=== PATIENT | female | born 1985 | race Caucasian/White ===

== ENCOUNTER 2020-06-19 02:01 | Inpatient (IN) ==
[2020-06-19] MEDS ORDERED: ONDANSETRON 4 MG/2 ML VIAL IV STA (02:35)
[2020-06-19] MEDS ORDERED: HYDROmorphone 2 MG/1 ML VIAL IV STA (02:35)
[2020-06-19] MEDS ORDERED: PANTOPRAZOLE 40 MG VIAL IV STA (02:35)
[2020-06-19] MEDS ORDERED: SODIUM CHLORIDE 0.9% 1,000 ML IV STA (02:35)
[2020-06-19] MEDS ORDERED: LEVOFLOXACIN INJ 500 MG in PREMIX 1 EACH IV STA (02:43)
[2020-06-19] MEDS ORDERED: GLUCAGON 1 MG VIAL IM PRN (02:51)
[2020-06-19] MEDS ORDERED: ONDANSETRON 4 MG/2 ML VIAL IV PRN (02:51)
[2020-06-19] MEDS ORDERED: DEXTROSE 50% 25 GM/50 ML VIAL IV PRN (02:51)
[2020-06-19] MEDS ORDERED: HYDROmorphone 2 MG/1 ML VIAL IV PRN (02:57)
[2020-06-19 04:20] LABS: Basophils % 0.7 % (0.0-0.8); Eosinophils # 0.2 10*3/uL (0.0-0.87); Eosinophils % 4.2 % (0.00-10.9); Hematocrit 37.9 VOL% (35.7-47.0); Hemoglobin 12.4 GM/DL (12.0-16.0); Immature Granulocytes % 0.2 %; Immature Granulocytes Absolute 0.01 #; Lymphocytes % 17.7 % (21.3-54.2); Mean Corpuscular HGB Conc 32.7 GM/DL (32-36); Mean Corpuscular Volume 82.8 FL (87-102); Mean Platelet Volume 11.2 FL (9.6-12.0); Monocytes % 6.7 % (1.7-12.7); Neutrophils % 70.5 % (38.7-73.9); Platelet Count 222 T/CUMM (130-400); Red Blood Count 4.58 MC/CUMM (3.8-5.5); Red Cell Distribution Width 13.8 % (9.3-17.3); White Blood Count 5.7 T/CUMM (4-12)
[2020-06-19 04:43] LABS: Risk Ratio 3.48
[2020-06-19 04:44] LABS: Albumin 4.3 G/DL (3.4-5.0); Bilirubin,Total 4.4 MG/DL (0.2-1.0); Total Protein 7.4 G/DL (6.4-8.3)
[2020-06-19 04:47] LABS: INR 1.1; PT Patient Result 11.4 SECS (9.8-11.9)
[2020-06-19 05:35] LABS: Hepatitis B Surface Ag Quant < 0.10 Index; Hepatitis B Surface Ag Result Negative (Negative); Hepatitis C Virus Ab Quant < 0.02 Index; Hepatitis C Virus Ab Result Negative (Negative)
[2020-06-19] MEDS: SODIUM CHLORIDE 0.9% 1,000 ML IV SCH (05:54)
[2020-06-19] MEDS ORDERED: INDOMETHACIN SUPP 50 MG SUPP RECTAL ONE (09:31)
[2020-06-19 10:19] LABS: Bilirubin,Urine Negative (Negative); Blood, Urine Negative (Negative); Glucose,Urine (UA) Negative (Negative); Ketones,Urine 5 mg/dL (Negative); Mucus,Urine Occasional /LPF (Occasional); Nitrite,Urine Negative (Negative); Protein,Urine Negative; RBC,Urine 1 /HPF (0-4); Squamous Epithelial Cell,Urine Occasional /HPF (0-10); Urine Appearance CLEAR (Clear); Urine Color Amber (Yellow); Urine Specific Gravity 1.015 (1.001-1.035); Urine Urobilinogen < 2.0 EU/DL (0.2-1.0); WBC,Urine <1 /HPF (0-6)
[2020-06-19] MEDS: LACTATED RINGERS 1,000 ML IV SCH (12:16)
[2020-06-19] MEDS ORDERED: LIDOCAINE 2% 5 ML VIAL ONE (13:23)
[2020-06-19] MEDS ORDERED: SUCCINYLCHOLINE 200 MG/10 ML VIAL ONE (13:23)
[2020-06-19] MEDS ORDERED: propofoL 200 MG/20 ML VIAL IV ONE (13:23)
[2020-06-19] MEDS ORDERED: ROCURONIUM 50 MG/5 ML VIAL IV ONE (13:23)
[2020-06-19] MEDS ORDERED: MIDAZOLAM 2 MG/2 ML VIAL ONE (13:24)
[2020-06-19] MEDS ORDERED: fentaNYL 100 MCG/2 ML VIAL ONE (13:24)
[2020-06-19] MEDS ORDERED: PHENYLEPHRINE 1 MG/10 ML SYRINGE IV ONE (14:13)
[2020-06-19] MEDS ORDERED: SEVOFLURANE 1 UNIT/15 MINUTE INH ONE (14:13)
[2020-06-19] MEDS ORDERED: INDOCYANINE GREEN 25 MG VIAL IV ONE (17:01)
[2020-06-19] MEDS ORDERED: PHENOL 1.4% THROAT SPRAY 177 ML BOTTLE PO PRN (19:40)
[2020-06-19] MEDS: LEVOFLOXACIN INJ 500 MG in PREMIX 1 EACH IV SCH (21:44)
[2020-06-19] MEDS: metroNIDAZOLE INJ 500 MG in PREMIX 1 EACH IV SCH ×2 (22:48→23:11)
[2020-06-20] MEDS: SODIUM CHLORIDE 0.9% 1,000 ML IV SCH (03:19)
[2020-06-20 06:26] LABS: Basophils % 0.4 % (0.0-0.8); Eosinophils # 0.3 10*3/uL (0.0-0.87); Eosinophils % 5.5 % (0.00-10.9); Hematocrit 34.1 VOL% (35.7-47.0); Hemoglobin 11.2 GM/DL (12.0-16.0); Immature Granulocytes % 0.4 %; Immature Granulocytes Absolute 0.02 #; Lymphocytes # 1.4 10*3/uL (1.4-4.0); Lymphocytes % 27.3 % (21.3-54.2); Mean Corpuscular HGB Conc 32.8 GM/DL (32-36); Mean Platelet Volume 10.4 FL (9.6-12.0); Neutrophils % 58.4 % (38.7-73.9); Platelet Count 169 T/CUMM (130-400); Red Blood Count 4.11 MC/CUMM (3.8-5.5); Red Cell Distribution Width 13.6 % (9.3-17.3); White Blood Count 5.1 T/CUMM (4-12)
[2020-06-20] MEDS ORDERED: INDOCYANINE GREEN 25 MG VIAL IV ONE (06:30)
[2020-06-20] MEDS ORDERED: CLINDAMYCIN INJ 900 MG in PREMIX 1 EACH IV ONE (06:30)
[2020-06-20 06:50] LABS: Albumin 3.1 G/DL (3.4-5.0); Bilirubin,Direct 1.68 MG/DL (0.0-0.20); Bilirubin,Indirect 1.8 MG/DL (0.0-1.0); Bilirubin,Total 3.5 MG/DL (0.2-1.0)
[2020-06-20 06:52] LABS: Albumin 3.1 G/DL (3.4-5.0); Bilirubin,Total 3.6 MG/DL (0.2-1.0); Calcium 8.2 MG/DL (8.5-10.1); Osmolality,Calculated 277.3 MOS/KG (273-304); Total Protein 5.9 G/DL (6.4-8.3)
[2020-06-20] MEDS: metroNIDAZOLE INJ 500 MG in PREMIX 1 EACH IV SCH ×3 (07:09→23:28)
[2020-06-20] MEDS ORDERED: BUPIVACAINE MPF 0.25% 30 ML VIAL ONE (09:45)
[2020-06-20] MEDS ORDERED: LIDOCAINE 1%/EPI INJ 20 ML VIAL ONE (09:45)
[2020-06-20] MEDS ORDERED: ROCURONIUM 50 MG/5 ML VIAL IV ONE (09:48)
[2020-06-20] MEDS ORDERED: propofoL 200 MG/20 ML VIAL IV ONE (09:48)
[2020-06-20] MEDS ORDERED: LIDOCAINE 2% 5 ML VIAL ONE (09:48)
[2020-06-20] MEDS ORDERED: MIDAZOLAM 2 MG/2 ML VIAL ONE (09:49)
[2020-06-20] MEDS ORDERED: fentaNYL 100 MCG/2 ML VIAL ONE (09:49)
[2020-06-20] MEDS ORDERED: TISSUE ADHESIVE 1 EACH APPLICATOR TOP ONE (09:58)
[2020-06-20] MEDS ORDERED: PHENYLEPHRINE 1 MG/10 ML SYRINGE IV ONE (10:23)
[2020-06-20] MEDS ORDERED: CLINDAMYCIN INJ 50 ML IV ONE (10:27)
[2020-06-20] MEDS ORDERED: DEXAMETHASONE 4 MG/1 ML VIAL ONE (10:40)
[2020-06-20] MEDS ORDERED: ONDANSETRON 4 MG/2 ML VIAL ONE (10:40)
[2020-06-20] MEDS ORDERED: NEOSTIGMINE 10 MG/10 ML VIAL ONE (10:55)
[2020-06-20] MEDS ORDERED: GLYCOPYRROLATE 0.4 MG/2 ML VIAL ONE (10:55)
[2020-06-20] MEDS ORDERED: MEPERIDINE 25 MG/1 ML VIAL ONE (11:26)
[2020-06-20] MEDS ORDERED: PROMETHAZINE INJ 25 MG in SODIUM CHLORIDE 0.9% 50 ML IV PRN (11:39)
[2020-06-20] MEDS ORDERED: diphenhydrAMINE 50 MG/1 ML VIAL IV PRN (11:39)
[2020-06-20] MEDS ORDERED: ONDANSETRON 4 MG/2 ML VIAL IV PRN (11:39)
[2020-06-20] MEDS ORDERED: MEPERIDINE 25 MG/1 ML VIAL IV PRN (11:39)
[2020-06-20] MEDS: LACTATED RINGERS 1,000 ML IV SCH (12:53)
[2020-06-20] MEDS: LEVOFLOXACIN INJ 500 MG in PREMIX 1 EACH IV SCH (20:58)
[2020-06-21] MEDS: SODIUM CHLORIDE 0.9% 1,000 ML IV SCH ×2 (00:13→01:07)
[2020-06-21] MEDS: metroNIDAZOLE INJ 500 MG in PREMIX 1 EACH IV SCH (06:11)
[2020-06-21 06:37] LABS: Basophils % 0.5 % (0.0-0.8); Eosinophils # 0.1 10*3/uL (0.0-0.87); Eosinophils % 2.2 % (0.00-10.9); Hematocrit 35.3 VOL% (35.7-47.0); Hemoglobin 11.2 GM/DL (12.0-16.0); Immature Granulocytes % 0.3 %; Immature Granulocytes Absolute 0.02 #; Lymphocytes # 1.5 10*3/uL (1.4-4.0); Lymphocytes % 25.6 % (21.3-54.2); Mean Corpuscular HGB Conc 31.7 GM/DL (32-36); Mean Corpuscular Volume 84.4 FL (87-102); Mean Platelet Volume 10.8 FL (9.6-12.0); Monocytes % 7.5 % (1.7-12.7); Neutrophils % 63.9 % (38.7-73.9); Platelet Count 187 T/CUMM (130-400); Red Blood Count 4.18 MC/CUMM (3.8-5.5); Red Cell Distribution Width 13.7 % (9.3-17.3)
[2020-06-21 06:45] LABS: Calcium 8.6 MG/DL (8.5-10.1); Osmolality,Calculated 276.3 MOS/KG (273-304)
[2020-06-21 06:46] LABS: Albumin 3.2 G/DL (3.4-5.0); Bilirubin,Direct 0.7 MG/DL (0.0-0.20); Bilirubin,Indirect 0.8 MG/DL (0.0-1.0); Bilirubin,Total 1.5 MG/DL (0.2-1.0); Total Protein 6.1 G/DL (6.4-8.3)
[2020-06-21 07:36] VITALS: BP 102/50
== END 2020-06-21 11:36 | disposition home or self-care (01) | DRG 419 ==
LOC: N.ED 02:01 → N.EDINP 02:51 → N.3E 03:05
PROVIDERS: ADMIT Internal Medicine; ATTEND Internal Medicine
PROC: ERCPWSP (ICD-10-PCS; 2020-06-19 12:05)
PROC: LAPCHOL (2020-06-20 10:09)